=== PATIENT | female | born 2000 | race Caucasian/White ===

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

== ENCOUNTER 2024-01-11 05:15 | Observation (INO) ==
[2024-01-11] MEDS: KETOROLAC TROMETHAMINE 15 MG/ML VIAL IV STA (06:03)
[2024-01-11] MEDS: ONDANSETRON INJ 2 MG/ML 2 ML VIAL IV STA (06:03)
[2024-01-11] MEDS: SODIUM CHLORIDE 0.9% 1,000 ML IV STA (06:04)
[2024-01-11 06:20] LABS: Basophils # (auto) 0.03 K/uL (0.00-0.20); Basophils % (auto) 0.2 %; Eosinophils # (auto) 0.17 K/uL (0.00-0.50); Eosinophils % (auto) 1.1 %; Hematocrit (blood only) 37.1 % (37.0-47.0); Hemoglobin 12.8 g/dl (12.0-16.0); Immature Granulocytes # (auto) 0.05 K/uL (0.01-0.20); Immature Granulocytes % (auto) 0.3 %; Lymphocytes # (auto) 1.63 K/uL (1.20-3.40); Lymphocytes % (auto) 10.5 %; Mean Corpuscular Hemoglobin 31.4 pg (25.0-34.0); Mean Corpuscular Hgb Conc 34.5 g/dL (32.0-36.0); Mean Corpuscular Volume 91.2 fL (80.0-100.0); Monocytes # (auto) 0.73 K/uL (0.11-0.59); Monocytes % (auto) 4.7 %; Neutrophils # (auto) 12.87 K/uL (1.40-6.50); Neutrophils % (auto) 83.2 %; Platelet Count 255 K/uL (130-400); RDW Coefficient of Variation 11.8 % (11.5-14.5); RDW Standard Deviation 39.6 fL (36.4-46.3); Red Blood Count 4.07 M/uL (4.20-5.40); White Blood Count 15.48 K/ul (4.8-10.8)
[2024-01-11 06:24] LABS: Appearance Urine Clear (Clear); Bilirubin Urine Negative (Negative); Blood Urine Negative (Negative); Color Urine Dark Yellow; Glucose Urine UA Negative (Negative); Ketones Urine Trace (Negative); Leukocyte Esterase Urine Negative (Negative); Nitrite Urine Negative (Negative); Protein Urine Negative (Negative); Specific Gravity Urine 1.028 (1.000-1.030); Urobilinogen Urine Negative (Negative); pH Urine 5.5 (4.5-7.5)
[2024-01-11 06:29] LABS: Pregnancy Test, Serum Negative (Negative)
[2024-01-11 06:52] LABS: Albumin Globulin Ratio 1.3 (0.9-2); Albumin Level 4.2 gm/dl (3.4-5.0); BUN Creatinine Ratio 16.7 (10-20); Bilirubin,Total 0.8 mg/dl (0.2-1.0); Calcium 9.1 mg/dl (8.6-10.3); Creatinine Clr Calc Pharmacy 118.2 ml/min; Est GFR (African American) 123.3 ml/min; Est GFR (Non-African American) 106.4 ml/min; Globulin 3.3 gm/dl (2.5-4.0); Total Protein 7.5 gm/dl (6.0-8.3)
--- NOTE | 2024-01-11 07:04 | Emergency Department Note ---
Impression & Plan Acute appendicitis ED Provider Note Diagnosis: Acute appendicitis Disposition: Admission CHIEF COMPLAINT: Abdominal pain HPI: Patient is a 23-year-old female presenting with abdominal pain. Patient states her symptoms started yesterday in the Umbilical region. Patient states this morning it radiated down to the right lower quadrant. Patient's had nausea without vomiting. Patient has been having normal bowel movements reportedly. Patient denies any urinary symptoms at this time. Patient believes she may have a fever 2 days ago but did not check. Patient does not have any sick contacts at this time. Patient has had no prior abdominal surgeries PAST MEDICAL HISTORY: See Below PAST SURGICAL HISTORY: See Below SOCIAL HISTORY: See Below HOME MEDICATIONS: See Below ALLERGIES: See Below VITALS: See Below PHYSICAL EXAMINATION: GENERAL: Well appearing, well nourished, NAD, non-toxic. EYE EXAM: Normal conjunctiva. OROPHARYNX: Moist mucus membranes. Grossly normal dentition. NECK: Supple, LUNGS: Clear to auscultation. Normal chest wall mechanics. HEART: NSR ABDOMEN: Abdomen soft, tenderness right lower quadrant BACK: No CVA TTP. SKIN: No rashes and no bruising. UPPER EXTREMITIES: Upper extremities are grossly normal LOWER EXTREMITIES: Grossly normal, no edema. NEURO EXAM: A&O x3,, normal speech, moves all 4 extremities PSYCH: Cooperative MEDICAL DECISION MAKING: Reviewed external documents: History obtained from: Patient ER Course: Patient is a 23-year-old female presenting with complaint of abdominal pain that is now moved to the right lower quadrant. Patient had associated nausea without vomiting. Patient found to have leukocytosis. Patient CT abdomen pelvis shows acute appendicitis with potential necrosis of the tip of the appendix. Patient given dose of Zosyn. Patient has been n.p.o. today. Patient admitted to general surgery team. Labs (independently interpreted) are significant for: Leukocytosis Medications given: Normal saline, Toradol, Zofran, Zosyn Consultants: Discussion with general surgery team accepts patient to their service for further treatment and evaluation Triage Nursing notes reviewed and agree them. Vital Signs: reviewed and remarkable for: no significant abnormalities Past Med/Surg History Medical History Hx of atrial septal defect Cyst of right ovary Hx of nasal polyp Asthma Migraines Surgical History H/O nasal polypectomy as an Hx of wisdom tooth extraction Family History Aunt Breast cancer, Onset Age: 60 maternal aunt Other Asthma Gallbladder disease H/O thyroidectomy Hypertension Kidney stone Pituitary tumor Denies family history of Ovarian cancer Prostate cancer Myocardial infarction Colorectal cancer Social History Smoking Status: Never smoker Second Hand Exposure: No; Do You Dip or Chew Tobacco: No; Hx Alcohol Use: Yes Alcohol Intake Frequency: Monthly or Less Hx Substance Use: No Preferred Language: Citizen Of [place] Communication Ability: Effective Visual Impairment: Limited Hearing Ability: Normal Tie Inspector Required: No Beliefs That Will Affect Care: None marital status: Single Current Living Situation: Significant Other current occupational status: employed 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 Feels Safe at Home: Yes Childhood Exposure to Second-Hand Smoke: No Diet: regular Diet Comment: regular caffeine: Yes (coffee ) during the past year weight has: remained stable Dental Care, Regularly: No Physical Activity Frequency: Daily Seatbelt Use: always Sunscreen Use: No Allergies Allergies Allergy/AdvReac Type Severity Reaction Status Date / Time peanut Allergy Severe SHORTNESS Verified 01/11/24 09:50 OF BREATH, NAUSEA/VOMITING tree nut Allergy Severe THROAT Verified 01/11/24 09:50 SWELLS, HIVES No Known Drug Allergies Allergy Mild Unknown Unverified 01/11/24 09:46 apple Allergy Unknown Unknown Unverified 01/11/24 09:46 [place] [employer] And Derivatives Allergy Unknown Unknown Unverified 01/11/24 09:46 grass pollen Allergy Unknown POSITIVE Verified 01/11/24 09:46 ALLERGY TEST peach Allergy Unknown Unknown Unverified 01/11/24 09:46 plum Allergy Unknown Unknown Unverified 01/11/24 09:46 strawberry Allergy Unknown Unknown Unverified 01/11/24 09:46 tree and shrub pollen Allergy Unknown POSITIVE Verified 01/11/24 09:46 ALLERGY TEST MANY FRUITS Allergy Unknown MANY Uncoded 05/08/23 14:30 FRUITS PER PT. Home Meds Home Medications Medication Instructions Recorded Confirmed levonorgestrel-ethinyl estradiol 1 tab PO HS 09/08/22 01/11/24 0.1 mg-20 mcg tablet acetaminophen 500 mg tablet 500 mg PO Q6H PRN Fever/Pain 01/11/24 01/11/24 ibuprofen 200 mg tablet 200 mg PO Q6H PRN Fever/Pain 01/11/24 01/11/24 loratadine 10 mg tablet (Claritin) 10 mg PO DAILY 01/11/24 01/11/24 Previous Rx's Medication Instructions Recorded bupropion HCl 150 mg 24 hr tablet, 150 mg PO QAM #90 tabs 02/24/23 extended release (Wellbutrin XL) hydroxyzine HCl 25 mg tablet 25 mg PO TID PRN anxiety #30 tabs 10/20/23 Results & Data (ED) Vital Signs Vital Signs - 24 hr 01/11/24 05:20 01/11/24 05:45 01/11/24 05:46 Temperature 36.7 C Temperature Source Oral Pulse Rate 93 H 87 Pulse Rate [Right Finger] 89 Pulse Rate from SpO2 Sensor Pulse Rhythm Pulse Rhythm [Right Finger] Regular Pulse Strength [Right Finger] Normal Respiratory Rate 16 Respiratory Effort / Characteristics Non-Labored Spontaneous Respiratory Depth Normal Respiratory Pattern Blood Pressure 141/86 H Blood Pressure [Right Arm] 135/73 Blood Pressure Mean 104 Blood Pressure Mean [Right Arm] 93 Blood Pressure Position [Right Arm] Sitting Pulse Oximetry 98 96 Oxygen Delivery Method Room Air Room Air Sepsis Recent Fever Within 48 Hours Yes Sepsis New/Unexplained Change in Mental Status No Sepsis Action Taken by Nursing No Action Required 01/11/24 05:46 01/11/24 06:30 01/11/24 07:12 Temperature Temperature Source Pulse Rate 84 67 Pulse Rate [Right Finger] 67 Pulse Rate from SpO2 Sensor 70 Pulse Rhythm Regular Pulse Rhythm [Right Finger] Regular Pulse Strength [Right Finger] Normal Respiratory Rate 16 16 15 Respiratory Effort / Characteristics Non-Labored Spontaneous Respiratory Depth Normal Respiratory Pattern Regular Blood Pressure Blood Pressure [Right Arm] 135/73 Blood Pressure Mean Blood Pressure Mean [Right Arm] 93 Blood Pressure Position [Right Arm] Lying Pulse Oximetry 96 98 100 Oxygen Delivery Method Room Air Room Air Sepsis Recent Fever Within 48 Hours Sepsis New/Unexplained Change in Mental Status Sepsis Action Taken by Nursing 01/11/24 07:30 01/11/24 08:49 01/11/24 08:51 Temperature Temperature Source Pulse Rate 74 80 Pulse Rate [Right Finger] 78 Pulse Rate from SpO2 Sensor 74 80 Pulse Rhythm Pulse Rhythm [Right Finger] Regular Pulse Strength [Right Finger] Normal Respiratory Rate 21 17 17 Respiratory Effort / Characteristics Non-Labored Spontaneous Respiratory Depth Normal Respiratory Pattern Regular Blood Pressure 126/72 136/84 Blood Pressure [Right Arm] 136/84 Blood Pressure Mean 90 101 Blood Pressure Mean [Right Arm] 101 Blood Pressure Position [Right Arm] Semi-fowlers Pulse Oximetry 99 100 99 Oxygen Delivery Method Room Air Room Air Room Air Sepsis Recent Fever Within 48 Hours Sepsis New/Unexplained Change in Mental Status Sepsis Action Taken by Nursing 01/11/24 09:00 Temperature Temperature Source Pulse Rate 80 Pulse Rate [Right Finger] Pulse Rate from SpO2 Sensor 81 Pulse Rhythm Pulse Rhythm [Right Finger] Pulse Strength [Right Finger] Respiratory Rate 21 Respiratory Effort / Characteristics Respiratory Depth Respiratory Pattern Blood Pressure 142/86 H Blood Pressure [Right Arm] Blood Pressure Mean 104 Blood Pressure Mean [Right Arm] Blood Pressure Position [Right Arm] Pulse Oximetry 100 Oxygen Delivery Method Room Air Sepsis Recent Fever Within 48 Hours Sepsis New/Unexplained Change in Mental Status Sepsis Action Taken by Nursing Laboratory Data 01/11/24 05:51 01/11/24 05:51 Lab Results 01/11/24 01/11/24 Range/Units 05:50 05:51 WBC 15.48 H (4.8-10.8) K/ul RBC 4.07 L (4.20-5.40) M/uL Hgb 12.8 (12.0-16.0) g/dl Hct 37.1 (37.0-47.0) % MCV 91.2 (80.0-100.0) fL MCH 31.4 (25.0-34.0) pg MCHC 34.5 (32.0-36.0) g/dL RDW Std Deviation 39.6 (36.4-46.3) fL RDW Coeff of [place] 11.8 (11.5-14.5) % Plt Count 255 (130-400) K/uL MPV 10.0 (9.4-12.4) fL Immature Gran % (Auto) 0.3 % Neut % (Auto) 83.2 % Lymph % (Auto) 10.5 % [place] % (Auto) 4.7 % Eos % (Auto) 1.1 % Baso % (Auto) 0.2 % Neut # (Auto) 12.87 H (1.40-6.50) K/uL Lymph # (Auto) 1.63 (1.20-3.40) K/uL [place] # (Auto) 0.73 H (0.11-0.59) K/uL Eos # (Auto) 0.17 (0.00-0.50) K/uL Baso # (Auto) 0.03 (0.00-0.20) K/uL Immature Gran # (Auto) 0.05 (0.01-0.20) K/uL Sodium 138 (136-145) mmol/L Potassium 4.0 (3.5-5.1) mmol/L Chloride 106 (98-107) mmol/L Carbon Dioxide 23 (21-32) mmol/L Anion Gap 9 (3-11) BUN 13 (6-23) mg/dl Creatinine 0.78 (0.6-1.2) mg/dl Est Cr Clr Drug Dosing 118.2 ml/min Est GFR ( Amer) 123.3 ml/min Est GFR (Non-Af Amer) 106.4 ml/min BUN/Creatinine Ratio 16.7 (10-20) Glucose 129 H (70-99(Fasting)) mg/dl Calcium 9.1 (8.6-10.3) mg/dl Total Bilirubin 0.8 (0.2-1.0) mg/dl AST 16 (13-39) U/L ALT 20 (7-52) U/L Alkaline Phosphatase 52 (34-104) U/L Total Protein 7.5 (6.0-8.3) gm/dl Albumin 4.2 (3.4-5.0) gm/dl Globulin 3.3 (2.5-4.0) gm/dl Albumin/Globulin Ratio 1.3 (0.9-2) Lipase 16 (11-82) U/L HCG, Qual Negative (Negative) Urine Color Dark Yellow Urine Appearance Clear (Clear) Urine pH 5.5 (4.5-7.5) Ur Specific [place] 1.028 (1.000-1.030) Urine Protein Negative (Negative) Urine Glucose (UA) Negative (Negative) Urine Ketones Trace H (Negative) Urine Blood Negative (Negative) Urine Nitrite Negative (Negative) Urine Bilirubin Negative (Negative) Urine Urobilinogen Negative (Negative) Ur Leukocyte Esterase Negative (Negative) Administered Medications Discontinued Medications Sodium Chloride (Nss) 1,000 mls @ 999 mls/hr IV .Q1H1M STA Stop: 01/11/24 06:28 Last Infusion: 01/11/24 07:49 Dose: Infused Documented By: Admin: 01/11/24 06:04 Dose: 999 mls/hr Documented By: SHERRY Piperacillin Sod/Tazobactam Sod (Zosyn) 4.5 gm in 100 mls @ 200 mls/hr IV NOW ONE Stop: 01/11/24 09:05 Last Infusion: 01/11/24 09:23 Dose: Infused Documented By: Admin: 01/11/24 08:49 Dose: 200 mls/hr Documented By: LULA Ioversol (Optiray 320 100ml) 94 ml IV ONCE ONE Stop: 01/11/24 07:26 Last Admin: 01/11/24 07:19 Dose: 94 ml Documented By: LESLYE Ketorolac Tromethamine (Ketorolac Tromethamine 15 Mg/Ml Vial) 10 mg IV NOW STA Stop: 01/11/24 05:29 Last Admin: 01/11/24 06:03 Dose: 10 mg Documented By: SHERRY Ondansetron HCl (Ondansetron Inj 2 Mg/Ml 2 Ml Vial) 4 mg IV NOW STA Stop: 01/11/24 05:59 Last Admin: 01/11/24 06:03 Dose: 4 mg Documented By: SHERRY Imaging Data Radiologist's Impression: Abdomen/Pelvis CT 01/11/24 05:[address] WITH IV CONTRAST CT DOSE: 1422.54 mGy.cm HISTORY: Acute right lower quadrant abdominal pain RLQ pain TECHNIQUE: Multiaxial CT images of the abdomen and pelvis were performed following the IV administration of 94 cc of Optiray, A dose lowering technique was utilized adhering to the principles of ALARA. COMPARISON STUDY: 07/25/2023 FINDINGS: The lung bases are clear. The liver, spleen, gallbladder, pancreas, and adrenal glands are within normal limits. No bowel wall thickening or obstruction. Punctate nonobstructing calculus of the inferior pole left kidney. Symmetric enhancement of the kidneys without hydronephrosis. Decompressed urinary bladder. The appendix is dilated and fluid-filled measuring up to 11 mm transversely. There is a focus of air within the appendiceal tip on image 238. There are a few punctate radiodensities within the proximal appendix which are suggestive of appendicoliths. Moderate adjacent inflammatory stranding. No fluid collections. The pelvic organs are unremarkable. No suspicious lytic or blastic osseous lesions. IMPRESSION: 1. Acute appendicitis without pneumoperitoneum or abscess. Air within the appendiceal tip is suspicious for intraluminal necrosis. 2. No bowel obstruction. 3. Left nephrolithiasis. ACT 112: Negative or not required by law. The above report was generated using voice recognition software. It may contain grammatical, syntax or spelling errors. Electronically signed by: Stone Greenberg M.D. 01/11/2024 7:57 AM Discharge Plan Visit Data Chief Complaint: Abdominal Pain Stated Complaint: ABD, LWR R SIDE, NAUSEA ED Provider: Mack Chambers Discharge Problem: Acute appendicitis Patient Disposition: Admitted As Inpatient Discharge Instructions Interventions: ED Discharge Assessment Last Done: 01/11/24 10:18
[2024-01-11] MEDS: OPTIRAY 320 100ml IV ONE (07:19)
--- NOTE | 2024-01-11 07:58 | CT Scan Report ---
ABDOMEN AND PELVIS CT WITH IV CONTRAST CT DOSE: 1422.54 mGy.cm HISTORY: Acute right lower quadrant abdominal pain RLQ pain TECHNIQUE: Multiaxial CT images of the abdomen and pelvis were performed following the IV administrat ion of 94 cc of Optiray, A dose lowering technique was utilized adhering to the principles of ALARA. COMPARISON STUDY: 07/25/2023 FINDINGS: The lung bases are clear. The liver, spleen, gallbladder, pancreas, and adrenal glands are within normal limits. No bowel wall thickening or obstruction. Punctate nonobstructing calculus of th e inferior pole left kidney. Symmetric enhancement of the kidneys without hydronephrosis. Decompresse d urinary bladder. The appendix is dilated and fluid-filled measuring up to 11 mm transversely. There is a focus of air within the appendiceal tip on image 238. There are a few punctate radiodensities w ithin the proximal appendix which are suggestive of appendicoliths. Moderate adjacent inflammatory st randing. No fluid collections. The pelvic organs are unremarkable. No suspicious lytic or blastic osseous lesions. IMPRESSION: 1. Acute appendicitis without pneumoperitoneum or abscess. Air within the appendiceal tip is suspicio us for intraluminal necrosis. 2. No bowel obstruction. 3. Left nephrolithiasis. ACT 112: Negative or not required by law. The above report was generated using voice recognition software. It may contain grammatical, syntax o r spelling errors. Electronically signed by: Stone Greenberg M.D. 01/11/2024 7:57 AM
[2024-01-11] MEDS: PIPERACILLIN/TAZOBACTAM 4.5 GM/100 ML BAG IV ONE (08:49)
--- NOTE | 2024-01-11 09:06 | Anesthesiology Consultation ---
Date of Service January 11, 2024 Assessment & Plan Chart Review Chart Review: entry operator initiated History Surgery Operation Date: 01/11/24 09:00 Proposed Procedures p Laparoscopic Appendectomy - Aaron Mishra MD Height/Weight Height: 5 ft 2 in Weight: 93.2 kg Allergies Allergy/AdvReac Type Severity Reaction Status Date / Time peanut Allergy Intermediate NAUSEA, Verified 05/08/23 14:30 VOMITING tree nut Allergy Intermediate THROAT Verified 05/08/23 14:30 SWELLS, HIVES No Known Drug Allergies Allergy Mild Unverified 12/28/23 14:07 grass pollen Allergy Unknown POSITIVE Verified 05/08/23 14:30 ALLERGY TEST tree and shrub pollen Allergy Unknown POSITIVE Verified 05/08/23 14:30 ALLERGY TEST MANY FRUITS Allergy Unknown MANY Uncoded 05/08/23 14:30 FRUITS PER PT. Medications Home Medications Medication Instructions Recorded Confirmed Last Taken levonorgestrel-ethinyl estradiol 1 tab PO 09/08/22 12/28/23 Unknown 0.1 mg-20 mcg tablet bupropion HCl 150 mg 24 hr tablet, 150 mg PO QAM #90 tabs 02/24/23 12/28/23 Unknown extended release (Wellbutrin XL) hydroxyzine HCl 25 mg tablet 25 mg PO TID PRN anxiety #30 tabs 10/20/23 12/28/23 Unknown Active Medications Generic Name Dose Route Start Last Admin Trade Name Freq PRN Reason Stop Dose Admin Piperacillin Sod/Tazobactam Sod 4.5 gm in 100 mls @ 200 mls/hr 01/11/24 08:36 01/11/24 08:49 Zosyn IV 01/11/24 09:05 200 mls/hr NOW ONE Administration Past Medical History Medical History Hx of atrial septal defect Cyst of right ovary Hx of nasal polyp Asthma Migraines Past Family History Family History Aunt Breast cancer, Onset Age: 60 maternal aunt Other Asthma Gallbladder disease H/O thyroidectomy Hypertension Kidney stone Pituitary tumor Denies family history of Ovarian cancer Prostate cancer Myocardial infarction Colorectal cancer Past Surgical History Surgical History H/O nasal polypectomy as an Hx of wisdom tooth extraction Social History Smoking Status: Never smoker Do You Dip or Chew Tobacco: No Hx Alcohol Use: Yes Hx Substance Use: No Physical Exam Vital Signs Last Vital Signs Temp 98.1 F 01/11/24 05:20 Pulse 78 01/11/24 08:51 Resp 17 01/11/24 08:51 BP 136/84 01/11/24 08:51 Pulse Ox 99 01/11/24 08:51 O2 Del Method Room Air 01/11/24 08:51 Testing Laboratory Results 01/11/24 05:51 01/11/24 05:51 Urine Color Dark Yellow 01/11/24 05:50 Urine Appearance Clear (Clear) 01/11/24 05:50 Urine pH 5.5 (4.5-7.5) 01/11/24 05:50 Ur Specific [place] 1.028 (1.000-1.030) 01/11/24 05:50 Urine Protein Negative (Negative) 01/11/24 05:50 Urine Glucose (UA) Negative (Negative) 01/11/24 05:50 Urine Ketones Trace (Negative) H 01/11/24 05:50 Urine Nitrite Negative (Negative) 01/11/24 05:50 Ur Leukocyte Esterase Negative (Negative) 01/11/24 05:50 Electrocardiogram Date: 09/15/22 Poor data quality, interpretation may be adversely affected Normal sinus rhythm, rate 83 bpm Possible Left atrial enlargement Borderline ECG When compared with ECG of 22-OCT-2021 19:47, No significant change was found Confirmed by Imtiaz Hernández ([id number]) on 09/16/2022 3:51:58 PM Echocardiogram Date: 06/07/23 Normal LV size and systolic function. EF 65-70%. No regional wall motion abnormlaites. No LVH. No significant valvular abnormalities Normal estimated RVSP Normal sinus rhythm
--- NOTE | 2024-01-11 09:13 | History & Physical Report ---
Date of Service January 11, 2024 Assessment & Plan (1) Acute appendicitis: Plan: 23 yo female with less than 24 hours history of abdominal pain with acute appendicitis on ct scan with leukocytosis of 15k, afebrile. Discussed with patient indication for laparoscopic appendectomy. Discussed risks of procedure, expected recovery and restrictions. Will plan to take to operating room this morning for laparoscopic appendectomy with Dr. Mishra. Keep NPO. Continue Zosyn. Discussed with Dr. Mishra who agrees with above and will obtain consent in preop. History of Present Illness Chief Complaint: abdominal pain Primary Care Provider: Anushka Costa DO Elizabeth is a 23 yo female with history of atrial septal defect, anxiety and depression, migraine headache, allergic rhinitis, asthma, who presented to ED with complaint of adominal pain that started last evening around 5 pm and more epigastric and then radiated down to right lower abdomen around 3 am. Possible fever two days ago but nothing persistent. Some nausea this morning, no vomiting. No chest pain, shortness of breath, difficulty urinating, or blood in stools. Currently rating pain 2/10, had some Toradol which helped. Allergies Allergy/AdvReac Type Severity Reaction Status Date / Time peanut Allergy Intermediate NAUSEA, Verified 05/08/23 14:30 VOMITING tree nut Allergy Intermediate THROAT Verified 05/08/23 14:30 SWELLS, HIVES No Known Drug Allergies Allergy Mild Unverified 12/28/23 14:07 grass pollen Allergy Unknown POSITIVE Verified 05/08/23 14:30 ALLERGY TEST tree and shrub pollen Allergy Unknown POSITIVE Verified 05/08/23 14:30 ALLERGY TEST MANY FRUITS Allergy Unknown MANY Uncoded 05/08/23 14:30 FRUITS PER PT. Home Medications Medication Instructions Recorded Confirmed Type levonorgestrel-ethinyl estradiol 1 tab PO 09/08/22 12/28/23 History 0.1 mg-20 mcg tablet bupropion HCl 150 mg 24 hr tablet, 150 mg PO QAM #90 tabs 02/24/23 12/28/23 Rx extended release (Wellbutrin XL) hydroxyzine HCl 25 mg tablet 25 mg PO TID PRN anxiety #30 tabs 10/20/23 12/28/23 Rx Past Med/Surg History Medical History Hx of atrial septal defect Cyst of right ovary Hx of nasal polyp Asthma Migraines Surgical History H/O nasal polypectomy as an Hx of wisdom tooth extraction Family History Aunt Breast cancer, Onset Age: 60 maternal aunt Other Asthma Gallbladder disease H/O thyroidectomy Hypertension Kidney stone Pituitary tumor Denies family history of Ovarian cancer Prostate cancer Myocardial infarction Colorectal cancer Social History Smoking Status: Never smoker Second Hand Exposure: No; Do You Dip or Chew Tobacco: No; Hx Alcohol Use: Yes Alcohol Intake Frequency: Monthly or Less Hx Substance Use: No Preferred Language: Sinhala Communication Ability: Effective Visual Impairment: Limited Hearing Ability: Normal Director Energy Required: No Beliefs That Will Affect Care: None marital status: Single Current Living Situation: Significant Other current occupational status: employed 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 Feels Safe at Home: Yes Childhood Exposure to Second-Hand Smoke: No Diet: regular Diet Comment: regular caffeine: Yes (coffee ) during the past year weight has: remained stable Dental Care, Regularly: No Physical Activity Frequency: Daily Seatbelt Use: always Sunscreen Use: No Review of Systems Review of Systems: All systems reviewed & are unremarkable except as noted in HPI & below Physical Exam Constitutional: WD/WN, vitals as above cooperative and comfortable; no acute distress and not ill appearing Respiratory: normal respiratory effort, lungs clear to auscultation Cardiovascular: RRR, no murmur, no edema Gastrointestinal (Abdomen): Inspection/Auscultation: abdomen normal to inspection; abdomen not distended Percussion/Palpation: + abdomen tender (RLQ to mid lower abdomen) and abdomen soft; no guarding, abdomen not rigid and abdomen not firm Skin: no rashes, warm and dry Psychiatric: A+Ox3, euthymic affect Results & Data Results & Data Vital Signs (Past 12 Hours) Vital Signs Temp Pulse Pulse Resp BP BP Pulse Ox 01/11/24 08:51 78 17 136/84 99 01/11/24 08:49 80 17 136/84 100 01/11/24 07:30 74 21 126/72 99 01/11/24 07:12 67 15 100 01/11/24 06:30 67 16 135/73 98 01/11/24 05:46 84 16 96 01/11/24 05:46 89 16 135/73 96 01/11/24 05:45 87 01/11/24 05:20 36.7 C 93 H 141/86 H 98 O2 Del Method 01/11/24 08:51 Room Air 01/11/24 08:49 Room Air 01/11/24 07:30 Room Air 01/11/24 07:12 01/11/24 06:30 Room Air 01/11/24 05:46 Room Air 01/11/24 05:46 Room Air 01/11/24 05:45 01/11/24 05:20 Room Air Laboratory Results 01/11/24 01/11/24 Range/Units 05:51 05:50 WBC 15.48 H (4.8-10.8) K/ul RBC 4.07 L (4.20-5.40) M/uL Hgb 12.8 (12.0-16.0) g/dl Hct 37.1 (37.0-47.0) % MCV 91.2 (80.0-100.0) fL MCH 31.4 (25.0-34.0) pg MCHC 34.5 (32.0-36.0) g/dL RDW Std Deviation 39.6 (36.4-46.3) fL RDW Coeff of [place] 11.8 (11.5-14.5) % Plt Count 255 (130-400) K/uL MPV 10.0 (9.4-12.4) fL Immature Gran % (Auto) 0.3 % Neut % (Auto) 83.2 % Lymph % (Auto) 10.5 % [place] % (Auto) 4.7 % Eos % (Auto) 1.1 % Baso % (Auto) 0.2 % Neut # (Auto) 12.87 H (1.40-6.50) K/uL Lymph # (Auto) 1.63 (1.20-3.40) K/uL [place] # (Auto) 0.73 H (0.11-0.59) K/uL Eos # (Auto) 0.17 (0.00-0.50) K/uL Baso # (Auto) 0.03 (0.00-0.20) K/uL Immature Gran # (Auto) 0.05 (0.01-0.20) K/uL Sodium 138 (136-145) mmol/L Potassium 4.0 (3.5-5.1) mmol/L Chloride 106 (98-107) mmol/L Carbon Dioxide 23 (21-32) mmol/L Anion Gap 9 (3-11) BUN 13 (6-23) mg/dl Creatinine 0.78 (0.6-1.2) mg/dl Est Cr Clr Drug Dosing 118.2 ml/min Est GFR ( Amer) 123.3 ml/min Est GFR (Non-Af Amer) 106.4 ml/min BUN/Creatinine Ratio 16.7 (10-20) Glucose 129 H (70-99(Fasting)) mg/dl Calcium 9.1 (8.6-10.3) mg/dl Total Bilirubin 0.8 (0.2-1.0) mg/dl AST 16 (13-39) U/L ALT 20 (7-52) U/L Alkaline Phosphatase 52 (34-104) U/L Total Protein 7.5 (6.0-8.3) gm/dl Albumin 4.2 (3.4-5.0) gm/dl Globulin 3.3 (2.5-4.0) gm/dl Albumin/Globulin Ratio 1.3 (0.9-2) Lipase 16 (11-82) U/L HCG, Qual Negative (Negative) Urine Color Dark Yellow Urine Appearance Clear (Clear) Urine pH 5.5 (4.5-7.5) Ur Specific [place] 1.028 (1.000-1.030) Urine Protein Negative (Negative) Urine Glucose (UA) Negative (Negative) Urine Ketones Trace H (Negative) Urine Blood Negative (Negative) Urine Nitrite Negative (Negative) Urine Bilirubin Negative (Negative) Urine Urobilinogen Negative (Negative) Ur Leukocyte Esterase Negative (Negative) Diagnostic Findings ABDOMEN AND PELVIS CT WITH IV CONTRAST CT DOSE: 1422.54 mGy.cm HISTORY: Acute right lower quadrant abdominal pain RLQ pain TECHNIQUE: Multiaxial CT images of the abdomen and pelvis were performed following the IV administration of 94 cc of Optiray, A dose lowering technique was utilized adhering to the principles of ALARA. COMPARISON STUDY: 07/25/2023 FINDINGS: The lung bases are clear. The liver, spleen, gallbladder, pancreas, and adrenal glands are within normal limits. No bowel wall thickening or obstruction. Punctate nonobstructing calculus of the inferior pole left kidney. Symmetric enhancement of the kidneys without hydronephrosis. Decompressed urinary bladder. The appendix is dilated and fluid-filled measuring up to 11 mm transversely. There is a focus of air within the appendiceal tip on image 238. There are a few punctate radiodensities within the proximal appendix which are suggestive of appendicoliths. Moderate adjacent inflammatory stranding. No fluid collections. The pelvic organs are unremarkable. No suspicious lytic or blastic osseous lesions. IMPRESSION: 1. Acute appendicitis without pneumoperitoneum or abscess. Air within the appendiceal tip is suspicious for intraluminal necrosis. 2. No bowel obstruction. 3. Left nephrolithiasis. ACT 112: Negative or not required by law. Code Status & VTE Plan VTE Prophylaxis Plan VTE Prophylaxis will be ordered: Yes
[2024-01-11] MEDS: LACTATED RINGER'S 1,000 ML IV SCH ×2 (10:45→14:53)
[2024-01-11] MEDS ORDERED: ATROPINE SULFATE 0.1 MG/ML 10ML SYR IV PRN (11:25)
[2024-01-11] MEDS ORDERED: PROMETHAZINE HCL 6.25 MG in SODIUM CHLORIDE 0.9% 50 ML IV PRN (11:25)
[2024-01-11] MEDS ORDERED: ePHEDrine sulfate 50 MG/ML AMP IV PRN (11:25)
[2024-01-11] MEDS ORDERED: ONDANSETRON INJ 2 MG/ML 2 ML VIAL IV PRN ×2 (11:25→14:31)
[2024-01-11] MEDS ORDERED: fentaNYL citrate PF 100 MCG/2 ML VIAL IV PRN (11:25)
[2024-01-11] MEDS ORDERED: fentaNYL citrate PF 100 MCG/2 ML VIAL ONE (11:31)
[2024-01-11] MEDS ORDERED: LIDOCAINE 2% 2 ML VIAL/AMP(20MG/ML) INFIL ONE (11:31)
[2024-01-11] MEDS ORDERED: KETOROLAC 30 MG/ML VIAL ONE (11:31)
[2024-01-11] MEDS ORDERED: DEXAMETHASONE SOD INJ 4 MG/ML VIAL ONE (11:31)
[2024-01-11] MEDS ORDERED: PROPOFOL IV EMULSION 10 MG/ML 20 ML VIAL IV ONE (11:31)
[2024-01-11] MEDS ORDERED: ONDANSETRON INJ 2 MG/ML 2 ML VIAL ONE (11:31)
[2024-01-11] MEDS ORDERED: ROCURONIUM BROMIDE 10 MG/ML 5 ML VIAL IV ONE (11:31)
[2024-01-11] MEDS ORDERED: MIDAZOLAM HCL 1 MG/ML 2ML VIAL ONE (11:31)
[2024-01-11] MEDS ORDERED: ACETAMINOPHEN 1000 MG/100 ML IV IV ONE (11:34)
[2024-01-11] MEDS ORDERED: SCOPOLAMINE 1 MG/72 HR TDSY PATCH TD ONE (11:47)
[2024-01-11] MEDS: SCOPOLAMINE 1 MG/72 HR TDSY PATCH TD ONE (11:49)
[2024-01-11] MEDS ORDERED: SUGAMMADEX SODIUM 200 MG/2 ML VIAL IV ONE (12:18)
[2024-01-11] MEDS: BUPIVACAINE/EPINEPHRINE 0.5% MPF 1:200,000 30 ML VIAL ONE (12:32)
--- NOTE | 2024-01-11 12:35 | Operative Report ---
Post Operative Report Pre & Post Diagnosis Operation Date: 01/11/24 09:00 Pre-Op Diagnosis: Acute Appendicitis Post-Op Diagnosis: Acute Appendicitis I identified the patient and participated in the time-out.: Yes Procedure Operation Date: 01/11/24 09:00 Actual Procedures p Laparoscopic Appendectomy(Not Applicable) - Aaron Mishra MD Surgeon Aaron Mishra MD [employer] Cindy Kapoor PA-C Estimated Blood Loss 5 Findings Consistent with Post-Op Diagnosis Early acute appendicitis Specimens Appendix to pathology Drains None Anesthesia Type General Complications None Indications This is a 23-year-old female admitted through the emergency department with acute abdominal pain. CT scan shows an early acute appendicitis. We talked in detail about this and recommended laparoscopic appendectomy. She understands the risks and wishes to proceed. Description of Procedure The patient was taken to the OR and underwent excellent general anesthesia. Their abdomen was prepped and draped in normal sterile fashion. A transverse supraumbilical incision was made, towel clamps were used to create tension on the abdominal wall as a Varess needle was inserted gently into the peritoneal cavity. Good pneumoperitoneum was achieved to about 15 mmHg pressure. Once this was done, a visualized 11 port was placed in the supraumbilical position. A 12 mm left lower quadrant port , a 5mm suprapubic port , and a 5mm right upper quadrant port were placed in normal fashion. Patient was then placed in head down and rolled to the left. A good diagnostic lap was performed. They had obvious acute appendicitis. The cecum was grasped with an atraumatic grasper. A grasper was then was then used to grasp the tip of the appendix. The mesoappendix was splayed open and a harmonic scalpel was used to take down the mesoappendix. The base of the appendix was identified and an Endo CONNIE stapler was used to transect the appendix at its base. A Endobag was then inserted through the left lower quadrant port and the appendix was placed into the bag, The bag was removed through the left lower quadrant port. The appendix was then sent for pathologic evaluation. Pneumoperitoneum was re-established and the 12 mm port was replaced. Saline was then used to irrigate the abdomen. There was no active bleeding nor any other abnormalities noted in the abdomen. Patient was then placed back in neutral position, the ports were removed and the pneumoperitoneum decompressed. The 12mm port fascia was then closed using a 0 Vicryl. The skin was then anesthetized with 0.5% Marcaine with epinephrine local. Interrupted Vicryl is used to close the skin. Dermabond was used to reinforce the incisions. Sterile dressings were applied. The patient tolerated procedure without complications was sent to the postop recovery period of observation. They will be sent to the floor for the rest of their care. Cindy Kapoor PA-C was present and participated in the entire procedure. She was integral in skin closure, retraction, and camera manipulation. There was no qualified resident available to assist. I attest to the content of the Intraoperative Record and any orders documented therein. Any exceptions are noted below.
--- NOTE | 2024-01-11 13:58 | Anesthesiology Progress Note ---
Date of Service January 11, 2024 Anesthesia Post Procedure Vital Signs Vital Signs: Temp Pulse Pulse Pulse Resp BP BP 01/11/24 13:45 67 14 124/69 01/11/24 13:30 67 16 131/60 01/11/24 13:20 75 16 130/76 01/11/24 13:10 36.7 C 71 16 130/89 01/11/24 13:00 78 17 142/79 H 01/11/24 12:50 83 16 111/57 L 01/11/24 12:44 36 C L 94 H 12 142/80 H 01/11/24 11:14 36.8 C 81 20 01/11/24 09:00 80 21 142/86 H 01/11/24 08:51 78 17 01/11/24 08:49 80 17 136/84 01/11/24 07:30 74 21 126/72 01/11/24 07:12 67 15 01/11/24 06:30 67 16 01/11/24 05:46 84 16 01/11/24 05:46 89 16 01/11/24 05:45 87 01/11/24 05:20 36.7 C 93 H 141/86 H BP Pulse Ox O2 Del Method O2 Flow Rate 01/11/24 13:45 97 Room Air 01/11/24 13:30 98 Room Air 01/11/24 13:20 99 Room Air 01/11/24 13:10 99 Room Air 01/11/24 13:00 100 Room Air 01/11/24 12:50 100 Oxymask 5 01/11/24 12:44 100 Oxymask 5 01/11/24 11:14 135/81 99 Room Air 01/11/24 09:00 100 Room Air 01/11/24 08:51 136/84 99 Room Air 01/11/24 08:49 100 Room Air 01/11/24 07:30 99 Room Air 01/11/24 07:12 100 01/11/24 06:30 135/73 98 Room Air 01/11/24 05:46 96 Room Air 01/11/24 05:46 135/73 96 Room Air 01/11/24 05:45 01/11/24 05:20 98 Room Air Pain Intensity Right Lower Abdomen: Pain Intensity: 4 Transfer of Care Handoff Completed per policy Notes Mental Status: alert / awake / arousable Patient Amnestic to Procedure: Yes Nausea / Vomiting: adequately controlled Pain: adequately controlled Airway Patency, RR, SpO2: stable & adequate BP & HR: stable & adequate Hydration State: stable & adequate Anesthetic Complications: no major complications apparent and Pt Satisfied with anesthetic care
[2024-01-11] MEDS ORDERED: MoRPHine SULFATE 2 MG/ML CARP IV PRN (14:31)
[2024-01-11] MEDS ORDERED: oxyCODONE/ACETAMINOPHEN 5mg/325mg TAB PO PRN ×2 (14:31)
[2024-01-11] MEDS ORDERED: MoRPHine SULFATE 4 MG/ML 1 ML CARP\\VIAL IV PRN (14:31)
[2024-01-11] MEDS: CHECK SCOPOLAMINE PATCH PLACEMENT SCH (15:23)
[2024-01-11] MEDS: PIPERACILLIN/TAZOBACTAM 4.5 GM in DEXTROSE 5% MINI-B 100 ML IV SCH (16:25)
[2024-01-11] MEDS: KETOROLAC TROMETHAMINE 15 MG/ML VIAL IV PRN (21:19)
--- NOTE | 2024-01-12 09:17 | Discharge Summary ---
Date of Service January 12, 2024 Admission HPI Per Admitting Provider Elizabeth is a 23 yo female with history of atrial septal defect, anxiety and depression, migraine headache, allergic rhinitis, asthma, who presented to ED with complaint of adominal pain that started last evening around 5 pm and more epigastric and then radiated down to right lower abdomen around 3 am. Possible fever two days ago but nothing persistent. Some nausea this morning, no vomiting. No chest pain, shortness of breath, difficulty urinating, or blood in stools. Currently rating pain 2/10, had some Toradol which helped. Principal Diagnosis acute appendicitis Discharge Data Allergies Allergy/AdvReac Type Severity Reaction Status Date / Time peanut Allergy Severe SHORTNESS Verified 01/11/24 09:50 OF BREATH, NAUSEA/VOMITING tree nut Allergy Severe THROAT Verified 01/11/24 09:50 SWELLS, HIVES No Known Drug Allergies Allergy Mild Unknown Unverified 01/11/24 09:46 apple Allergy Unknown Unknown Unverified 01/11/24 09:46 Hitchcock And Derivatives Allergy Unknown Unknown Unverified 01/11/24 09:46 grass pollen Allergy Unknown POSITIVE Verified 01/11/24 09:46 ALLERGY TEST peach Allergy Unknown Unknown Unverified 01/11/24 09:46 plum Allergy Unknown Unknown Unverified 01/11/24 09:46 strawberry Allergy Unknown Unknown Unverified 01/11/24 09:46 tree and shrub pollen Allergy Unknown POSITIVE Verified 01/11/24 09:46 ALLERGY TEST MANY FRUITS Allergy Unknown MANY Uncoded 05/08/23 14:30 FRUITS PER PT. Consultations 01/11/24 08:34 ED Decision to Admit Stat Procedures Performed Operation Date: 01/11/24 09:00 Actual Procedures p Laparoscopic Appendectomy(Not Applicable) - Aaron Mishra MD Ordered Studies 01/11/24 05:29 CT abd pelvis IV con only Stat Hospital Course (1) Acute appendicitis: Patient admitted through ED with acute appendicitis. Underwent uncomplicated lap appendectomy. She did well with diet and pain control. She was discharged POD#1. Total Time Total Time Spent Total Time Spent (In Minutes): 15 Discharge Plan Discharge Items Patient Disposition: Home - Self-Care Reason For Visit: ABD, LWR R SIDE, NAUSEA Discharge Diagnosis: Acute appendicitis Activity: Per Instructions section Lifting: No more than 25 pounds Bathing: No limitations Bathing Comment: shower OK begining today Sexual Activity: When tolerated Exercise/Sports: Wait until after follow-up appointment Driving/Machine Use: Resume 3 days after discharge Weightbearing: Full weightbearing Call non-emergency contact if: you have any medication questions, your pain is unusual for you, your temperature is above 101.5 and your wound pain has increased Follow-up/Referrals: Anushka Costa DO [Primary Care Provider] - Cindy Kapoor PA-C [Physician Line Tender] - Diet: Regular Addtl Attending Provider Instructions: Post-Surgical ~Discharge Instructions Activity Recommendations: - lifting limitation: (20 pounds for 3-4 weeks), - exercise/sex/sports limit: (nonstrenuous for 2 weeks), - driving or machine use limit: (none for 1 week or until pain free and no longer taking narcotic pain medication), - Shower/bathe limit: (may shower, no submerging incisions underwater for 2 weeks) Diet: - Resume previous diet SPECIAL CARE INSTRUCTIONS: - May shower. Let water run over area and pat dry. - Leave surgical glue on incisions, this will fall off on its own. - Call the surgeon's office with any questions or concerns - - (ex. temperature higher than 101 degrees F, excessive bleeding or pain). MEDICATIONS: - Resume previous medications unless instructed otherwise by your surgeon. - May alternate extra strength Tylenol and Ibuprofen as needed for mild to moderate pain -650 mg Tylenol every 6 hours as needed - Ibuprofen 600 mg every 6 hours as need , take with food - Percocet 1 every 6 hours, as needed for moderate to severe pain - Recommend stool softener (Colace) while taking narcotic pain medication to prevent constipation or straining FOLLOW UP VISIT: - If not already scheduled, please call the office to schedule a two week follow-up appointment. Office number Pending Studies at Discharge: Yes (appendix pathology, will be reviewed at postop visit) Stand-Alone Forms: My [facility] Medications and DC Order Prescriptions: New oxycodone-acetaminophen [Percocet] 5-325 mg tablet 1 tab PO Q6H PRN (Reason: pain) Qty: 14 0RF ondansetron HCl 4 mg tablet 4 mg PO Q8H PRN (Reason: nausea and vomiting) 5 Days Qty: 7 0RF oxycodone-acetaminophen [Percocet] 5-325 mg tablet 1 tab PO Q6H PRN (Reason: pain) Qty: 14 0RF ondansetron HCl 4 mg tablet 4 mg PO Q8H PRN (Reason: nausea and vomiting) 5 Days Qty: 7 0RF Continued hydroxyzine HCl 25 mg tablet 25 mg PO TID PRN (Reason: anxiety) Qty: 30 1RF levonorgestrel-ethinyl estrad 0.1-20 mg-mcg tablet 1 tab PO HS bupropion HCl [Wellbutrin XL] 150 mg tablet extended release 24 hr 150 mg PO QAM Qty: 90 2RF acetaminophen 500 mg Tablet 500 mg PO Q6H PRN (Reason: Fever/Pain) ibuprofen 200 mg Tablet 200 mg PO Q6H PRN (Reason: Fever/Pain) loratadine [Claritin] 10 mg Tablet 10 mg PO DAILY Discharge Orders: Discharge Order (Routine); Ordered 01/12/24 Ordered By: Aaron Mishra Admission Data Admit Date/Time: 01/11/24 12:38 Attending Provider: Aaron Mishra Admit Provider: Aaron Mishra Primary Care Provider: Anushka Costa Other Providers: Aaron Mishra
== END 2024-01-12 12:49 | disposition home or self-care (01) ==
LOC: ED 05:15 → OR 10:20 → 3E 10:20